=== PATIENT | male | born 1940 | race Caucasian/White ===

== ENCOUNTER 2018-06-16 11:46 | Inpatient (IN) | payer OTHER ==
[~2018-06-16] VITALS: Ht 167.6 cm; Wt 73.9 kg
--- NOTE | ~2018-06-16 | O ---
[facility] [place] [address] [place] [address] OPERATIVE REPORT Name: ANGELES PAZ Room #: 215-P [facility] IN M.R.#: [id number] Admission: 06/16/18 Attend Phys: Daniel Tubbs MD Discharge: 06/27/18 Date of : 40 Report #: [id number] THIS REPORT FOR: //name// CC: SABRA physician/PCP Daniel Tubbs WHOLE CARE TEAM DATE OF SERVICE: 06/25/2018 SURGEON: Leighton Sutherland MD REASON FOR CONSULTATION: 1. Rule out upper airway obstruction with stridor. 2. COPD exacerbation. POSTOPERATIVE DIAGNOSES: 1. Rule out upper airway obstruction with stridor. 2. COPD exacerbation. OPERATION PERFORMED: Flexible nasopharyngoscopy. DESCRIPTION OF PROCEDURE: In the patient's hospital room, topical anesthesia was achieved with 1% Christian-Synephrine and 4% topical lidocaine. After an appropriate period, examination was made with a flexible laryngoscope. Complete examination was made of the nose, nasopharynx, oropharynx, hypopharynx and larynx. The patient was noted to have a nasal septal deviation to the right, nonobstructing without polyps. There was no significant discharge to the nose. Nasopharynx was clear. Base of tongue, vallecula, epiglottis, hypopharynx and larynx were normal. There was no pooling of secretions at the cricopharyngeal. Vocal cords were mobile. No mass lesion was noted. The scope was then removed. The patient tolerated the procedure well. There were no complications. <ELECTRONICALLY SIGNED> By: Leighton Sutherland MD 06/29/18 1619 1223 1244 Leighton Sutherland MD /nt
--- NOTE | ~2018-06-16 | HC ---
[facility] [place] [address] [place] [address] CONSULTATION Name: ANGELES PAZ Room #: 215-P [facility] IN M.R.#: [id number] Admission: 06/16/18 Attend Phys: Daniel Tubbs MD Discharge: 06/27/18 Date of : 40 Report #: [id number] THIS REPORT FOR: //name// CC: SABRA physician/PCP Daniel Tubbs DATE OF SERVICE: 06/25/2018 SURGEON: Leighton Sutherland MD. REASON FOR CONSULTATION: Otolaryngic evaluation of upper airway. HISTORY OF PRESENT ILLNESS: The patient is a 77-year-old male admitted through the Emergency Department on 06/16/2018 with an exacerbation of his underlying COPD. The patient is an active smoker of tobacco. He has not been able to smoke since being in the hospital. He has had progressive wheezing and I was asked to evaluate if there was any upper airway stridor component. He complains of shortness of breath. Review of his chart has revealed nighttime desaturation concerning for obstructive apnea. The patient is on aggressive therapy including IV Solu-Medrol as well as nebulized treatments, Mucinex, procalcitonin for concern of possible sepsis. He has been evaluated by Pulmonology. Complicating this is diastolic heart failure in a background of hypertension and coronary artery disease. He does have a history of previous coronary bypass grafting. PAST MEDICAL HISTORY: Significant for COPD with multiple hospitalizations for exacerbation in this patient who continues to smoke tobacco, anxiety, coronary artery disease status post CABG graft, diastolic heart failure, hypertension, degenerative joint disease, left shoulder pain. CURRENT MEDICATIONS: Reviewed in his MAR. ALLERGIES: None. REVIEW OF SYSTEMS: All concentrated on the patient's shortness of breath and discomfort. Remaining 10-point review of systems is unremarkable. FAMILY HISTORY: Not pertinent. SOCIAL HISTORY: The patient continues to smoke tobacco. He states less than a pack a day. States that he quit smoking on presentation to the hospital, but smoked up until that. He does use alcohol. He does use marijuana. PHYSICAL EXAMINATION: GENERAL: A well-developed 77-year-old male, looking older than his stated age. He is uncomfortable with shortness of breath and wheezing. He is able to [facility] [address] [address] CONSULTATION Name: ANGELES PAZ Room #: 215-P [facility] IN M.R.#: [id number] Admission: 06/16/18 Attend Phys: Daniel Tubbs MD Discharge: 06/27/18 Date of : 40 Report #: [id number] converse in short sentences stopping to take a breath. VITAL SIGNS: Show a temperature of 97.7, blood pressure 149/58, heart rate of 87, respiration of 20, 95% oxygen saturation. HEENT: He is normocephalic. Pupils equal, round, reactive to light. Otologic exam, mild cerumen nonobstructing, no middle ear effusion. Nasal exam shows a deviated septum to the right, partially obstructing. Oral cavity is without mucosal lesion. Hypopharynx was examined with flexible endoscopy after topical Christian-Synephrine and lidocaine. This demonstrates a normal base of tongue, normal vallecula, normal epiglottis, normal larynx with mobile vocal cords. There is no mass lesion. There is no pooling of secretions at the cricopharyngeus. NECK: Trachea is midline. No adenopathy. NEUROLOGIC: Cranial nerves 2-12 were intact. Motor and sensory and cerebellar exam is difficult to examine as the patient cannot get out of bed. Chest x-ray from 06/25/2018 reviewed showing left basilar atelectasis, which is a new finding. Blood cultures have thus far been no growth. CBC shows a white count of 14,500 on Solu-Medrol, hemoglobin of 9.6. Electrolytes show an elevated BUN of 40, chloride of 113, CO2 of 25, calcium of 7.1. I do not see that an albumin was done. Magnesium also mildly low at 1.7. Electrocardiogram was reviewed. LVEF is 55%-60%, mild aortic regurgitation, trace mitral regurgitation, trace to mild tricuspid regurgitation. IMPRESSION: 1. Chronic obstructive pulmonary disease exacerbation. I see no evidence of any upper airway obstructive findings. There is no paradoxical closure of the vocal cords. There is no laryngeal or supraglottic mass that would account for upper airway stridor. 2. Oxygen desaturation concerning for obstructive apnea. After the patient's chronic obstructive pulmonary disease comes under better control, this can be evaluated with polysomnography. 3. Tobacco abuse continuing. 4. Diastolic heart failure with a history of chronic obstructive pulmonary disease, status post coronary artery bypass graft and hypertension. 5. Nasal septal deviation of the right, partially obstructing, chronic in nature. PLAN: Above discussed with the patient. I will not plan to follow along with you, but I am available for any change in status concerning his upper airway. <ELECTRONICALLY SIGNED> By: Leighton Sutherland MD 06/29/18 1619 1218 27 Leighton Sutherland MD /nt
--- NOTE | ~2018-06-16 | HC ---
[facility] [place] [address] [place] [address] CONSULTATION Name: ANGELES PAZ Room #: 215-P ADM IN M.R.#: [id number] Admission: 06/16/18 Attend Phys: Daniel Tubbs MD Discharge: Date of : 40 Report #: [id number] THIS REPORT FOR: //name// CC: SABRA physician/PCP Daniel Tubbs DATE OF SERVICE: 06/21/2018 REFERRAL PHYSICIAN: Dr. Finley. REASON FOR REFERRAL: COPD. HISTORY OF PRESENT ILLNESS: The patient is a 77-year-old white male who was admitted on 06/16/2018 with left arm pain. When he presented to the Emergency Room, he also complained of dyspnea. The patient has a history of COPD. Over the last couple of days, the patient had progressive dyspnea, bronchospasm. For that reason, a pulmonary consultation was requested. The patient is currently dyspneic. Denies any chest pain. Denies any productive cough. He has left shoulder pain that has been controlled on narcotics. PAST MEDICAL HISTORY: Notable for COPD, history of coronary artery disease, undergone bypass surgery in 2000, rotator cuff surgery in the past, tobacco abuse. PAST SURGICAL HISTORY: As mentioned above. ALLERGIES: None to medications. HOME MEDICATIONS: Pletal, Glucophage, clonazepam, aspirin, Remeron, Coreg, Neurontin, Zestril, Lipitor, prednisone 5 mg once a day, baclofen. FAMILY HISTORY: Noncontributory. SOCIAL HISTORY: He continues to smoke about a pack a day. He denies any alcohol use. REVIEW OF SYSTEMS: As mentioned above, otherwise 10-point system review negative. PHYSICAL EXAMINATION: GENERAL: He is awake, alert, in mild respiratory distress. VITAL SIGNS: Temperature is 97.5 degrees Fahrenheit, pulse is 90, respiratory rate is 18, blood pressure is 145/68 mmHg and saturation is 93%. HEENT: Normocephalic, atraumatic. [facility] [address] [place] [address] CONSULTATION Name: ANGELES PAZ Room #: 215-P [facility] IN [facility].#: [id number] Admission: 06/16/18 Attend Phys: Daniel Tubbs MD Discharge: Date of : 40 Report #: [id number] NECK: Supple, without lymphadenopathy or thyromegaly. CHEST: Breath sounds are fair, moderate bilateral wheezes. No crackles. CARDIOVASCULAR: Normal S1, S2. No murmurs or gallop. There is no JVD. There is no carotid bruit. Pulses are 2+/4+ bilaterally. ABDOMEN: Soft, nontender, no organomegaly or masses felt. GENITOURINARY: Deferred. RECTAL: Deferred. EXTREMITIES: There is no edema, cyanosis or clubbing. LABORATORY DATA: CT chest angiogram shows no evidence of pulmonary embolus, patchy bilateral infiltrates are seen. Electrolytes are normal except for creatinine of 1.3. Liver enzymes are grossly unremarkable. WBC 14,800, hemoglobin 10.0, platelets are normal. Albumin 2.1. IMPRESSION: 1. Chronic obstructive pulmonary disease exacerbation, severity unknown, continuing to smoke. Agree with corticosteroids and bronchodilators. 2. Tobacco abuse. Smoke cessation is strongly recommended. 3. Left shoulder pain. 4. Coronary artery disease, undergoing coronary artery bypass surgery. 5. Patchy infiltrates by CT chest angiogram, possible pneumonia. Recommend broad-spectrum antibiotics. 6. Hypertension. 7. Diabetes mellitus type 2. RECOMMENDATION: As mentioned above, agree with corticosteroids, bronchodilators. DVT and GI prophylaxis recommended. Thank you for this consultation. By: [id number] 2325 Too Nguyen MD /nt
--- NOTE | ~2018-06-16 | EKG ---
[place] [address] [employer] [place] [address] ELECTROCARDIOGRAM REPORT Name: ANGELES PAZ Room #: 215-P ADM IN M.R.#: [id number] Admission: 06/16/18 Attend Phys: Daniel Tubbs MD Discharge: Date of : 40 Report #: [id number] THIS REPORT FOR: //name// [facility] Test Date: 2018-06-21 Test Time: 19:23:26 Pat Name: ANGELES PAZ Department: Room: 215 Gender: M Fern Gatherer: Jo SALAZAR : 1940 Requested By: Heather Aceves Order Number: [id number] MD: Mert Barrientos Measurements Intervals [place] Rate: 98 P: 71 OR: 138 QRS: 49 QRSD: 61 T: 45 QT: 415 QTc: 530 Interpretive Statements Sinus rhythm Probable left atrial enlargement Nonspecific ST and T wave abnormality Prolonged QT interval Compared to ECG 06/16/2018 12:06:19 Ventricular premature complex(es) no longer present Electronically Signed On 06-22-2018 8:31:56 CDT by Mert Barrientos [email or web address] <ELECTRONICALLY SIGNED> By: Mert Barrientos MD, [facility] 06/22/18 0831 22 22 Mert Barrientos MD, [facility] /EPI
--- NOTE | ~2018-06-16 | 2DMMODE ---
[facility] [place] [address] [place] [address] 2 D/M-MODE ECHOCARDIOGRAM Name: ANGELES PAZ Room #: 215-P [facility] IN [facility]#: [id number] Admission: 06/16/18 Attend Phys: Daniel Tubbs MD Discharge: Date of : 40 Date of Service: 06/24/18 0940 Report #: [id number] THIS REPORT FOR: //name// APPROVED REPORT Study performed: 06/23/2018 13:25:39 EXAM: Comprehensive 2D, Doppler, and color-flow Echocardiogram Patient Location: In-Patient Room #: 215 Status: routine BSA: 1.83 BP: 147/58 mmHg Other Information Study Quality: Adequate Indications Dyspnea 2D Dimensions IVSd: 9.53 (7-11mm) LVOT Diam: 20.53 (18-24mm) LVDd: 44.73 mm PWd: 11.79 (7-11mm) LVDs: 28.49 (25-40mm) Left Atrium: 35.30 (27-40mm) Aortic Root: 33.95 mm IVC: 18.00 mm Volumes Left Atrial Volume (Systole) Single Plane 4CH: 53.48 mL Single Plane 2CH: 54.45 mL Aortic Valve AoV Peak Rg.: 1.98 m/s AO Peak Gr.: 15.64 mmHg AO Mean Gr.: 9.38 mmHg AO V2 Mean: 1.45 m/s AO V2 VTI: 35.13 cm Mitral Valve E/A Ratio: 0.8 MV Decel. Time: 240.97 ms MV E Max Rg.: 0.85 m/s MV A Rg.: 1.11 m/s [facility] [address] [place] [address] 2 D/M-MODE ECHOCARDIOGRAM Name: ANGELES PAZ Room #: 215-P [facility] [place] [facility]#: [id number] Admission: 06/16/18 Attend Phys: Daniel Tubbs MD Discharge: Date of : 40 Date of Service: 06/24/18 0940 Report #: [id number] MV PHT: 69.88 ms Pulmonary Valve PV Peak Rg.: 1.41 m/s PV Peak Gr.: 7.96 mmHg Pulmonary Vein P Vein S: 1.12 m/s P Vein A: 0.33 m/s P Vein D: 0.50 m/s P Vein A Dur.: 138.4 msec P Vein S/D Ratio: 2.24 Tricuspid Valve TR Peak Rg.: 3.23 m/s RAP Estimate: 3.00 mmHg TR Peak Gr.: 41.72 mmHg RVSP: 45.00 mmHg Left Ventricle The left ventricle is normal size. There is normal LV segmental wall motion. There is normal left ventricular wall thickness. The left ventricular systolic function is normal. The left ventricular ejection fraction is within the normal range. LVEF is 55-60%. Grade I - abnormal relaxation pattern. Right Ventricle The right ventricle is normal size. The right ventricular systolic function is normal. Atria The left atrium size is normal. The right atrium size is normal. Aortic Valve The aortic valve is normal in structure. Trace to mild aortic regurgitation. Calculated aortic valve area is 3.0 cm2 with maximum pressure gradient of 16 mmHg and mean pressure gradient of 9 mmHg. Mitral Valve The mitral valve is normal in structure. Trace mitral regurgitation. Tricuspid Valve The tricuspid valve is normal in structure. There is trace to mild tricuspid regurgitation. The right atrial pressure is estimated at 5 mmHg. Right ventricular systolic pressure is estimated at 40-50 mmHg. There is mild-moderate pulmonary hypertension. Pulmonic Valve [address] [address] 2 D/M-MODE ECHOCARDIOGRAM Name: ANGELES PAZ Room #: 215-P ADM IN M.R.#: [id number] Admission: 06/16/18 Attend Phys: Daniel Tubbs MD Discharge: Date of : 40 Date of Service: 06/24/18 0940 Report #: [id number] The pulmonary valve is normal in structure. There is no pulmonic valvular regurgitation. Great Vessels The aortic root is normal in size. IVC is normal in size and collapses >50% with inspiration. Pericardium There is no pericardial effusion. <Conclusion> The left ventricle is normal size. LVEF is 55-60%. The aortic valve is normal in structure. Trace to mild aortic regurgitation. Calculated aortic valve area is 3.0 cm2 with maximum pressure gradient of 16 mmHg and mean pressure gradient of 9 mmHg. The mitral valve is normal in structure. Trace mitral regurgitation. The tricuspid valve is normal in structure. There is trace to mild tricuspid regurgitation. The right atrial pressure is estimated at 5 mmHg. Right ventricular systolic pressure is estimated at 40-50 mmHg. There is mild-moderate pulmonary hypertension. The pulmonary valve is normal in structure. There is no pericardial effusion. <ELECTRONICALLY SIGNED> By: Cali Borrego MD 06/24/18939 9 9 Cali Borrego MD /INF
--- NOTE | ~2018-06-16 | EKG ---
[place] [address] [facility] [place] [address] ELECTROCARDIOGRAM REPORT Name: ANGELES PAZ Room #: 418-P ADM IN M.R.#: [id number] Admission: 06/16/18 Attend Phys: Daniel Tubbs MD Discharge: Date of : 40 Report #: [id number] THIS REPORT FOR: //name// [facility] ED Test Date: 2018-06-16 Test Time: 12:06:19 Pat Name: ANGELES PAZ Department: Room: [facility] Gender: M Molten Iron Pourer: ALYSE : 1940 Requested By: Jv Wolfe Order Number: [id number] MD: Lb Amanda Measurements Intervals [place] Rate: 62 P: 68 [place]: 152 QRS: 37 QRSD: 83 T: 55 QT: 450 QTc: 457 Interpretive Statements Sinus rhythm Multiple ventricular premature complexes Probable left atrial enlargement Baseline wander in lead(s) V2 No previous ECG available for comparison Electronically Signed On 06-17-2018 16:49:42 CDT by Lb Amanda [email or web address] <ELECTRONICALLY SIGNED> By: Lb Amanda MD 06/17/18 1649 05 05 Lb Amanda MD /NITZA
[2018-06-16 11:47] VITALS: BP 115/53
[2018-06-16 12:11] LABS: ABSOLUTE NEUTROPHILS 7.1 thou/uL (1.4-8.2); BASOPHILS 1.5 % (0.0-2.0); EOSINOPHILS 2.2 % (0.0-3.0); HEMOGLOBIN 12.5 gm/dL (14.0-18.0); LYMPHOCYTES 14.7 % (24.0-44.0); MCH 30.7 pg (26.0-34.0); MCHC 34.6 g/dL (28.0-37.0); MCV 88.7 fL (80.0-100.0); PLATELET COUNT 245 thou/uL (150-400); POLYS 75.6 % (36.0-66.0); RBC 4.05 mil/uL (4.50-6.00); RDW 13.4 % (10.5-14.5); WBC 9.4 thou/uL (4.0-11.0)
[2018-06-16 12:19] LABS: ANION GAP 11 mmol/L (7-16); BUN 14 mg/dL (7-18); CALCIUM 8.5 mg/dL (8.5-10.1); CHLORIDE 106 mmol/L (98-107); CO2 25 mmol/L (21-32); CREATININE 1.1 mg/dL (0.7-1.3); GLUCOSE 110 mg/dL (74-106); SODIUM 142 mmol/L (136-145)
[2018-06-16 12:25] LABS: APTT 27.2 Seconds (24.5-32.8); PROTIME 10.7 Seconds (9.3-11.4)
[2018-06-16 12:27] LABS: ALBUMIN 2.8 g/dL (3.4-5.0); MAGNESIUM 1.9 mg/dL (1.8-2.4); SGOT 14 U/L (15-37); SGPT 13 U/L (30-65); TOTAL BILIRUBIN 0.4 mg/dL (<0.1-1.0); TOTAL PROTEIN 6.8 g/dL (6.4-8.2); TROPONIN-I <0.06 ng/mL (<0.06)
[2018-06-16] MEDS ORDERED: CILOSTAZOL 100100 M1 PO (12:36)
[2018-06-16] MEDS ORDERED: CLONAZEPAM 0.50.5 M1 PO (12:37)
[2018-06-16] MEDS ORDERED: METFORMIN HCL500 MG PO (12:37)
[2018-06-16] MEDS ORDERED: ASPIR 8181 MG PO (12:37)
[2018-06-16] MEDS ORDERED: PHARBETOL500 M1 PO (12:38)
[2018-06-16] MEDS ORDERED: CARVEDILOL12.5 MG PO (12:38)
[2018-06-16] MEDS ORDERED: REMERON15 MG PO (12:38)
[2018-06-16] MEDS ORDERED: LISINOPRIL10 MG PO (12:39)
[2018-06-16] MEDS ORDERED: NEURONTIN 300300 M1 PO (12:39)
[2018-06-16] MEDS ORDERED: PREDNISONE 5 MG5 M1 PO (12:40)
[2018-06-16] MEDS ORDERED: ATORVASTATIN CA40 MG PO (12:40)
[2018-06-16] MEDS ORDERED: LIORESAL 10 MG10 MG PO (12:40)
[2018-06-16 14:06] VITALS: BP 104/38
[2018-06-16 15:13] VITALS: BP 106/47
[2018-06-16 15:28] VITALS: BP 115/50
[2018-06-16 19:22] VITALS: BP 124/51
[2018-06-17 00:58] LABS: URINE BILIRUBIN NEGATIVE (Negative); URINE BLOOD NEGATIVE (Negative); URINE CLARITY CLEAR; URINE COLOR YELLOW; URINE GLUCOSE-RANDOM* NEGATIVE (Negative); URINE KETONES NEGATIVE (Negative); URINE LEUKOCYTES-REFLEX NEGATIVE (Negative); URINE NITRITE-REFLEX NEGATIVE (Negative); URINE PROTEIN (DIPSTICK) NEGATIVE (Negative); URINE SPECIFIC GRAVITY >= 1.030 (1.005-1.035); URINE UROBILINOGEN 0.2 E.U./dl (0.2-1.0)
[2018-06-17 01:15] LABS: AMP/METHAMP Negative (Negative); BARBITURATES Negative (Negative); BENZODIAZEPINES Negative (Negative); COCAINE Negative (Negative); METHADONE Negative (Negative); OPIATES Negative (Negative); PCP Negative (Negative)
[2018-06-17 04:35] VITALS: BP 151/65
[2018-06-17 04:39] LABS: HEMATOCRIT 35.1 % (42.0-52.0); HEMOGLOBIN 11.8 gm/dL (14.0-18.0); MCHC 33.7 g/dL (28.0-37.0); RBC 3.94 mil/uL (4.50-6.00); RDW 13.3 % (10.5-14.5); WBC 6.5 thou/uL (4.0-11.0)
[2018-06-17 04:51] LABS: CREATININE 1.3 mg/dL (0.7-1.3); POTASSIUM 4.6 mmol/L (3.5-5.1)
[2018-06-17 07:26] VITALS: BP 146/65
[2018-06-17 19:46] VITALS: BP 126/41
[2018-06-18 04:52] VITALS: BP 137/57
[2018-06-18 05:56] LABS: HEMATOCRIT 30.8 % (42.0-52.0); HEMOGLOBIN 10.5 gm/dL (14.0-18.0); MCH 30.1 pg (26.0-34.0); MCHC 34.1 g/dL (28.0-37.0); MCV 88.1 fL (80.0-100.0); RBC 3.5 mil/uL (4.50-6.00); RDW 13.1 % (10.5-14.5); WBC 15.6 thou/uL (4.0-11.0)
[2018-06-18 06:08] LABS: CALCIUM 8.6 mg/dL (8.5-10.1); CREATININE 1.3 mg/dL (0.7-1.3); POTASSIUM 4.6 mmol/L (3.5-5.1)
[2018-06-18 07:00] VITALS: BP 132/44
[2018-06-18 15:45] VITALS: BP 134/54
[2018-06-18 20:30] VITALS: BP 139/48
[2018-06-19 04:18] VITALS: BP 119/47
[2018-06-19 06:15] LABS: HEMATOCRIT 30.7 % (42.0-52.0); HEMOGLOBIN 10.4 gm/dL (14.0-18.0); MCH 29.8 pg (26.0-34.0); MCHC 33.7 g/dL (28.0-37.0); MCV 88.2 fL (80.0-100.0); RBC 3.49 mil/uL (4.50-6.00); WBC 13.3 thou/uL (4.0-11.0)
[2018-06-19 06:34] LABS: CALCIUM 9.1 mg/dL (8.5-10.1); CREATININE 1.3 mg/dL (0.7-1.3); POTASSIUM 4.7 mmol/L (3.5-5.1)
[2018-06-19 07:39] VITALS: BP 127/48
[2018-06-19 11:20] VITALS: BP 106/41
[2018-06-19 19:41] VITALS: BP 126/45
[2018-06-20 07:47] LABS: HEMATOCRIT 32.2 % (42.0-52.0); MCH 30.3 pg (26.0-34.0); MCHC 34.2 g/dL (28.0-37.0); MCV 88.6 fL (80.0-100.0); RBC 3.64 mil/uL (4.50-6.00); RDW 13.4 % (10.5-14.5); WBC 14.5 thou/uL (4.0-11.0)
[2018-06-20 07:56] LABS: CALCIUM 8.8 mg/dL (8.5-10.1); CREATININE 1.3 mg/dL (0.7-1.3); POTASSIUM 4.3 mmol/L (3.5-5.1)
[2018-06-20 19:05] VITALS: BP 151/50
[2018-06-21 08:08] VITALS: BP 145/68
[2018-06-21 12:27] LABS: HEMATOCRIT 29.7 % (42.0-52.0); HEMOGLOBIN 10.1 gm/dL (14.0-18.0); MCH 30.1 pg (26.0-34.0); MCV 88.5 fL (80.0-100.0); RBC 3.36 mil/uL (4.50-6.00); RDW 13.6 % (10.5-14.5); WBC 14.8 thou/uL (4.0-11.0)
[2018-06-21 12:39] LABS: ALBUMIN 2.1 g/dL (3.4-5.0); CREATININE 1.2 mg/dL (0.7-1.3); POTASSIUM 4.4 mmol/L (3.5-5.1); TOTAL BILIRUBIN 0.2 mg/dL (<0.1-1.0); TOTAL PROTEIN 5.2 g/dL (6.4-8.2)
[2018-06-21 19:40] LABS: HEMATOCRIT 31.5 % (42.0-52.0); HEMOGLOBIN 10.9 gm/dL (14.0-18.0); MCH 30.6 pg (26.0-34.0); MCHC 34.5 g/dL (28.0-37.0); MCV 88.8 fL (80.0-100.0); RBC 3.55 mil/uL (4.50-6.00); RDW 13.7 % (10.5-14.5); WBC 16.1 thou/uL (4.0-11.0)
[2018-06-21 19:47] LABS: ANION GAP 8 mmol/L (7-16); BUN 43 mg/dL (7-18); CALCIUM 8.4 mg/dL (8.5-10.1); CHLORIDE 110 mmol/L (98-107); CO2 23 mmol/L (21-32); CREATININE 1.6 mg/dL (0.7-1.3); GLUCOSE 224 mg/dL (74-106); POTASSIUM 4.7 mmol/L (3.5-5.1); SODIUM 141 mmol/L (136-145)
[2018-06-21 19:51] LABS: BE(vivo) -2.7 mmol/L (-2 to +3); HCO3 19.8 mmol/L (22.0-26.0); PCO2 27.4 mmHg (35.0-45.0); PO2 190.6 mmHg (80.0-100.0); pH 7.477 (7.360-7.450); sO2 99.4 % (92.0-98.0)
[2018-06-21 19:57] LABS: TROPONIN-I <0.06 ng/mL (<0.06)
[2018-06-21 21:42] VITALS: BP 117/84
[2018-06-22 03:50] VITALS: BP 145/63
[2018-06-22 04:25] LABS: HEMATOCRIT 32.2 % (42.0-52.0); HEMOGLOBIN 10.8 gm/dL (14.0-18.0); MCH 29.8 pg (26.0-34.0); MCHC 33.7 g/dL (28.0-37.0); MCV 88.5 fL (80.0-100.0); RBC 3.63 mil/uL (4.50-6.00); RDW 14.1 % (10.5-14.5); WBC 15.5 thou/uL (4.0-11.0)
[2018-06-22 04:46] LABS: CALCIUM 7.9 mg/dL (8.5-10.1); CREATININE 1.4 mg/dL (0.7-1.3); MAGNESIUM 1.8 mg/dL (1.8-2.4)
[2018-06-22 07:54] VITALS: BP 143/55
[2018-06-22 15:54] LABS: BE(vivo) -2.4 mmol/L (-2 to +3); HCO3 20.7 mmol/L (22.0-26.0); PCO2 30.3 mmHg (35.0-45.0); PO2 66.1 mmHg (80.0-100.0); pH 7.453 (7.360-7.450); sO2 94.2 % (92.0-98.0)
[2018-06-22 16:24] VITALS: BP 105/45
[2018-06-22 20:10] VITALS: BP 130/577
[2018-06-23 00:12] VITALS: BP 112/53
[2018-06-23 04:43] VITALS: BP 132/58
[2018-06-23 07:21] LABS: HEMATOCRIT 29.8 % (42.0-52.0); MCH 29.8 pg (26.0-34.0); MCHC 33.7 g/dL (28.0-37.0); MCV 88.3 fL (80.0-100.0); RBC 3.37 mil/uL (4.50-6.00); RDW 13.8 % (10.5-14.5); WBC 15.4 thou/uL (4.0-11.0)
[2018-06-23 07:30] LABS: CALCIUM 7.6 mg/dL (8.5-10.1); CREATININE 1.4 mg/dL (0.7-1.3); MAGNESIUM 1.8 mg/dL (1.8-2.4); POTASSIUM 3.8 mmol/L (3.5-5.1)
[2018-06-23 07:51] VITALS: BP 147/58
[2018-06-23 10:52] LABS: BE(vivo) -1.7 mmol/L (-2 to +3); HCO3 22.2 mmol/L (22.0-26.0); PO2 146.5 mmHg (80.0-100.0); pH 7.421 (7.360-7.450); sO2 98.9 % (92.0-98.0)
[2018-06-23 11:07] VITALS: BP 126/50
[2018-06-23 11:53] LABS: FOLIC ACID 7.1 ng/mL (8.6-58.9)
[2018-06-23 19:59] VITALS: BP 130/43
[2018-06-24 04:18] VITALS: BP 135/53
[2018-06-24 06:01] LABS: WBC 16.6 thou/uL (4.0-11.0)
[2018-06-24 06:02] LABS: HEMATOCRIT 29.8 % (42.0-52.0); HEMOGLOBIN 10.1 gm/dL (14.0-18.0); MCH 30.3 pg (26.0-34.0); MCHC 34.1 g/dL (28.0-37.0); MCV 89.1 fL (80.0-100.0); PLATELET COUNT 218 thou/uL (150-400); RBC 3.34 mil/uL (4.50-6.00); RDW 13.8 % (10.5-14.5)
[2018-06-24 06:13] LABS: CALCIUM 7.5 mg/dL (8.5-10.1); CREATININE 1.2 mg/dL (0.7-1.3); POTASSIUM 4.2 mmol/L (3.5-5.1); TOTAL BILIRUBIN 0.3 mg/dL (<0.1-1.0); TOTAL PROTEIN 4.9 g/dL (6.4-8.2)
[2018-06-24 09:37] LABS: ABSOLUTE NEUTROPHILS 15.9 thou/uL (1.4-8.2); METAMYELOCYTES 1 %
[2018-06-24 09:38] LABS: ANISOCYTOSIS SLIGHT
[2018-06-24 13:48] VITALS: BP 137/58
[2018-06-24 17:20] VITALS: BP 159/65
[2018-06-24 19:52] VITALS: BP 137/49
[2018-06-25 03:47] LABS: CALCIUM 7.1 mg/dL (8.5-10.1); CREATININE 1.2 mg/dL (0.7-1.3); MAGNESIUM 1.7 mg/dL (1.8-2.4); POTASSIUM 4.3 mmol/L (3.5-5.1)
[2018-06-25 03:58] LABS: HEMATOCRIT 28.1 % (42.0-52.0); HEMOGLOBIN 9.6 gm/dL (14.0-18.0); MCH 30.5 pg (26.0-34.0); MCHC 34.2 g/dL (28.0-37.0); RBC 3.16 mil/uL (4.50-6.00); WBC 14.5 thou/uL (4.0-11.0)
[2018-06-25 04:55] VITALS: BP 143/51
[2018-06-25 08:05] VITALS: BP 149/58
[2018-06-25 16:49] VITALS: BP 161/54
[2018-06-25 19:58] VITALS: BP 126/40
[2018-06-26 04:16] VITALS: BP 155/49
[2018-06-26 07:44] VITALS: BP 156/55
[2018-06-26 15:05] VITALS: BP 126/41
[2018-06-26 20:13] VITALS: BP 118/56
[2018-06-27 04:00] VITALS: BP 120/59
[2018-06-27 09:11] VITALS: BP 150/53
[2018-06-27] MEDS ORDERED: MUCINEX600 MG PO (15:10)
[2018-06-27] MEDS ORDERED: PROTONIX40 M1 PO (15:11)
[2018-06-27] MEDS ORDERED: DOXYCYCLINE 10100 MG PO (15:11)
[2018-06-27] MEDS ORDERED: PREDNISONE 10 M10 MG PO (15:12)
[2018-06-27 15:43] VITALS: BP 150/53
[2018-06-27 17:07] VITALS: BP 140/57
[2018-06-27 17:28] VITALS: BP 150/53
[2018-06-27 18:11] VITALS: BP 150/53
== END 2018-06-27 19:20 | disposition home health service (06) | DRG 189 ==
LOC: ER 11:46 → EROBS 13:58 → 4E 13:58 → 2N 13:58 → 4E 15:17 → SICU 06-19 10:28 → 2N 06-21 20:26
PROVIDERS: Emergency Medicine; Hospitalist; Internal Medicine; Nurse Practitioner Acute Care; Pediatrics
PROC: 5A09357 Assistance with Respiratory Ventilation, Less than 24 Consecutive Hours, Continuous Positive Airway Pressure (ICD-10-PCS; principal; 2018-06-21)
PROC: 5A09357 Assistance with Respiratory Ventilation, Less than 24 Consecutive Hours, Continuous Positive Airway Pressure (ICD-10-PCS; 2018-06-22)
PROC: 5A09357 Assistance with Respiratory Ventilation, Less than 24 Consecutive Hours, Continuous Positive Airway Pressure (ICD-10-PCS; 2018-06-23)
PROC: 5A09357 Assistance with Respiratory Ventilation, Less than 24 Consecutive Hours, Continuous Positive Airway Pressure (ICD-10-PCS; 2018-06-24)
PROC: 5A09357 Assistance with Respiratory Ventilation, Less than 24 Consecutive Hours, Continuous Positive Airway Pressure (ICD-10-PCS; 2018-06-25)
PROC: 0CJY8ZZ Inspection of Mouth and Throat, Via Natural or Artificial Opening Endoscopic (ICD-10-PCS; 2018-06-25)
PROC: 5A09357 Assistance with Respiratory Ventilation, Less than 24 Consecutive Hours, Continuous Positive Airway Pressure (ICD-10-PCS; 2018-06-26)
DX: J96.01 Acute respiratory failure with hypoxia (principal); J44.1 Chronic obstructive pulmonary disease with (acute) exacerbation; I50.30 Unspecified diastolic (congestive) heart failure; E46 Unspecified protein-calorie malnutrition; E87.2 Acidosis; Z23 Encounter for immunization; F17.210 Nicotine dependence, cigarettes, uncomplicated; F41.9 Anxiety disorder, unspecified; M19.90 Unspecified osteoarthritis, unspecified site; I25.10 Atherosclerotic heart disease of native coronary artery without angina pectoris; F98.5 Adult onset fluency disorder; M25.512 Pain in left shoulder; E11.9 Type 2 diabetes mellitus without complications; I11.0 Hypertensive heart disease with heart failure; J34.2 Deviated nasal septum; E78.5 Hyperlipidemia, unspecified; G89.29 Other chronic pain; Z60.2 Problems related to living alone; D72.829 Elevated white blood cell count, unspecified; T38.0X5A Adverse effect of glucocorticoids and synthetic analogues, initial encounter; R79.89 Other specified abnormal findings of blood chemistry; E53.8 Deficiency of other specified B group vitamins; G47.00 Insomnia, unspecified; E83.42 Hypomagnesemia; I27.20 Pulmonary hypertension, unspecified; I08.0 Rheumatic disorders of both mitral and aortic valves; Z53.29 Procedure and treatment not carried out because of patient's decision for other reasons; Z79.899 Other long term (current) drug therapy; Z79.82 Long term (current) use of aspirin; Z95.1 Presence of aortocoronary bypass graft; Z71.6 Tobacco abuse counseling; Z68.26 Body mass index [BMI] 26.0-26.9, adult; Y92.89 Other specified places as the place of occurrence of the external cause
CPT/HCPCS: 10081; 10183; 10797; 15002

== ENCOUNTER 2018-08-07 18:15 | Inpatient (IN) | payer OTHER ==
[~2018-08-07] VITALS: Ht 167.6 cm; Wt 65.8 kg
--- NOTE | ~2018-08-07 | EKG ---
[address] [address] ELECTROCARDIOGRAM REPORT Name: ANGELES PAZ Room #: 427-P ADM IN M.R.#: [id number] Admission: 08/07/18 Attend Phys: Joe Lutz Discharge: Date of : 40 Report #: [id number] THIS REPORT FOR: //name// [facility] ED Test Date: 2018-08-07 Test Time: 19:13:59 Pat Name: ANGELES PAZ Department: Room: [facility] Gender: M Wall Crane Operator: TERRY : 1940 Requested By: Cristiane English Order Number: [id number] MD: Mert Barrientos Measurements Intervals [place] Rate: 83 P: 59 DC: 156 QRS: 31 QRSD: 86 T: 38 QT: 376 QTc: 442 Interpretive Statements Sinus rhythm Minimal nonspecific ST segment abnormality Compared to ECG 06/21/2018 19:23:26 Prolonged QT interval no longer present Electronically Signed On 08-08-2018 9:03:03 PEDIATRIC INTENSIVE PHYSICIAN by Mert Barrientos [email or web address] <ELECTRONICALLY SIGNED> By: Mert Barrientos MD, [facility] 08/08/18 09 12 12 Mert Barrientos MD, [facility] /EPI
--- NOTE | ~2018-08-07 | HC ---
[facility] [place] [address] [place] [address] CONSULTATION Name: ANGELES PAZ Room #: 226-P [facility] IN M.R.#: [id number] Admission: 08/07/18 Attend Phys: Joe Lutz Discharge: Date of : 40 Report #: [id number] THIS REPORT FOR: //name// CC: [facility] physician/PCP Joe Horn DATE OF SERVICE: 08/13/2018 HISTORY OF PRESENT ILLNESS: The patient is a 77-year-old white male who was admitted on 08/07/2018 with exacerbation of COPD and influenza B. Since admission, the patient had a slow progress. He remains dyspneic with bronchospasm. For that reason, a pulmonary consultation was requested. The patient is known to this physician. He was last hospitalized in 06/2018 for exacerbation of COPD. Despite diagnosed with COPD, the patient continues to smoke actively. Currently, he complains of dyspnea, though it has improved. It is difficult for him to even move around the room. Otherwise, denies any chest pain, productive cough or hemoptysis. PAST MEDICAL HISTORY: Notable for COPD, severity unknown; coronary artery disease, undergoing coronary artery bypass surgery in 2000; diabetes mellitus type 2; hypertension; anxiety disorder; tobacco abuse; osteoarthritis; chronic shoulder pain. PAST SURGICAL HISTORY: As mentioned above including rotator cuff surgery. ALLERGIES: None to medications. HOME MEDICATIONS: Reviewed. CURRENT MEDICATIONS: Reviewed in the MAR. FAMILY HISTORY: Noncontributory. SOCIAL HISTORY: Smokes less than a pack a day and has smoked for most of his life. Denies any alcohol use. REVIEW OF SYSTEMS: As mentioned above, otherwise 10-point system review negative. PHYSICAL EXAMINATION: GENERAL: He is awake, alert, appears mildly dyspneic. He just had a shower. [facility] [address] [place] [address] CONSULTATION Name: ANGELES PAZ Room #: 226-P [facility] IN M.R.#: [id number] Admission: 08/07/18 Attend Phys: Joe Lutz Discharge: Date of : 40 Report #: [id number] VITAL SIGNS: Temperature is 97.4 degrees Fahrenheit, pulse is 90, respiratory rate is 18, blood pressure 136/50 mmHg, saturation 95%. HEENT: Normocephalic, atraumatic. NECK: Supple, without lymphadenopathy or thyromegaly. CHEST: Breath sounds are decreased with mild expiratory wheezes. CARDIOVASCULAR: Normal S1, S2. No murmurs or gallop. There is no JVD. There is no carotid bruit. Pulses are 2+/4+ bilaterally. ABDOMEN: Soft, nontender, no organomegaly or masses felt. GENITOURINARY: Deferred. RECTAL: Deferred. EXTREMITIES: There is no edema, cyanosis or clubbing. LABORATORY DATA: Portable chest x-ray was reviewed. It is clear. Electrolytes are normal except for creatinine 1.3. It was 1.1, previously. WBC 14,900, hemoglobin 9.9, platelets are normal. Albumin 3.1. IMPRESSION: 1. Chronic obstructive pulmonary disease exacerbation. 2. Influenza B. 3. Coronary artery disease. 4. Diabetes mellitus. 5. Hypertension. RECOMMENDATION AND DISCUSSION: The patient likely has severe pulmonary impairment, which would explain why he is slow to respond to therapy. Although he has improved somewhat. Suspect he needs more time. We will continue bronchodilators, corticosteroids. He may benefit from a assisted facility for ongoing medical care. He has not seen a station captain in the past, but recommend outpatient pulmonary followup for based on pulmonary functions and close outpatient treatment. DVT and GI prophylaxis recommended. Thank you for this consultation. <ELECTRONICALLY SIGNED> By: Too Nguyen MD 08/15/18 1915 0910 1020 Too Nguyen MD /nt
[~2018-08-07 18:15] MED LIST: ASPIR 8181 MG PO; ATORVASTATIN CA40 MG PO; CARVEDILOL12.5 MG PO; CILOSTAZOL 100100 M1 PO; CLONAZEPAM 0.50.5 M1 PO; DOXYCYCLINE 10100 MG PO; LIORESAL 10 MG10 MG PO; LISINOPRIL10 MG PO; METFORMIN HCL500 MG PO; MUCINEX600 MG PO; NEURONTIN 300300 M1 PO; PHARBETOL500 M1 PO; PREDNISONE 10 M10 MG PO; PREDNISONE 5 MG5 M1 PO; PROTONIX40 M1 PO; REMERON15 MG PO
[2018-08-07 18:16] VITALS: BP 145/46
[2018-08-07] MEDS ORDERED: ALBUTEROL2.5 MG/31 INH (18:28)
[2018-08-07 19:01] LABS: BE(vivo) -2.5 mmol/L (-2 to +3); HCO3 22.3 mmol/L (22.0-26.0); PCO2 VENOUS 38.7 mmHg (41.0-51.0); PO2 VENOUS 44.1 mmHg (35.0-45.0)
[2018-08-07 19:06] LABS: ABSOLUTE NEUTROPHILS 8.2 thou/uL (1.4-8.2); EOSINOPHILS 0.9 % (0.0-3.0); HEMATOCRIT 34.3 % (42.0-52.0); HEMOGLOBIN 11.7 gm/dL (14.0-18.0); LYMPHOCYTES 9.4 % (24.0-44.0); MCH 30.6 pg (26.0-34.0); MCHC 34.2 g/dL (28.0-37.0); MCV 89.6 fL (80.0-100.0); MONOCYTES 5.5 % (1.0-8.0); PLATELET COUNT 167 thou/uL (150-400); POLYS 83.2 % (36.0-66.0); RBC 3.83 mil/uL (4.50-6.00); RDW 16.2 % (10.5-14.5); WBC 9.9 thou/uL (4.0-11.0)
[2018-08-07 19:14] LABS: ANION GAP 8 mmol/L (7-16); BUN 10 mg/dL (7-18); CALCIUM 9.1 mg/dL (8.5-10.1); CHLORIDE 105 mmol/L (98-107); CO2 28 mmol/L (21-32); CREATININE 0.9 mg/dL (0.7-1.3); GLUCOSE 115 mg/dL (74-106); POTASSIUM 3.9 mmol/L (3.5-5.1); SODIUM 141 mmol/L (136-145)
[2018-08-07 19:23] LABS: ALBUMIN 3.1 g/dL (3.4-5.0); SGOT 16 U/L (15-37); SGPT 18 U/L (30-65); TOTAL BILIRUBIN 0.5 mg/dL (<0.1-1.0); TOTAL PROTEIN 6.8 g/dL (6.4-8.2); TROPONIN-I <0.06 ng/mL (<0.06)
[2018-08-07 20:29] VITALS: BP 147/60
[2018-08-07 20:35] VITALS: BP 147/60
[2018-08-07 23:40] VITALS: BP 149/52
[2018-08-08 06:41] LABS: ANION GAP 8 mmol/L (7-16); BUN 16 mg/dL (7-18); CALCIUM 8.6 mg/dL (8.5-10.1); CHLORIDE 105 mmol/L (98-107); CHOLESTEROL 126 mg/dL (<200); CO2 24 mmol/L (21-32); CREATININE 1.1 mg/dL (0.7-1.3); GLUCOSE 187 mg/dL (74-106); HDL CHOLESTEROL 49 mg/dL (>40); LDL CHOLESTEROL 73 mg/dL (<100); POTASSIUM 4.4 mmol/L (3.5-5.1); SODIUM 137 mmol/L (136-145); TC:HDL 2.6 Ratio (Not establshd); TRIGLYCERIDE 21 mg/dL (<150); VLDL 4 mg/dL (<40)
[2018-08-08 16:50] VITALS: BP 113/42
[2018-08-08 19:11] LABS: GLYCOHEMOGLOBIN (HGB A1C) 5.9 % (4.8-5.6)
[2018-08-08 19:41] VITALS: BP 116/36
[2018-08-09 04:34] VITALS: BP 117/43
[2018-08-09 09:11] VITALS: BP 125/42
[2018-08-09 16:06] VITALS: BP 124/38
[2018-08-09 20:05] VITALS: BP 128/45
[2018-08-10 04:28] VITALS: BP 105/26
[2018-08-10 07:51] VITALS: BP 138/53
[2018-08-10 16:31] VITALS: BP 150/54
[2018-08-10 20:30] VITALS: BP 131/45
[2018-08-11 04:30] VITALS: BP 122/32
[2018-08-11 07:30] VITALS: BP 151/45
[2018-08-11 19:45] VITALS: BP 132/42
[2018-08-11 22:05] VITALS: BP 132/42
[2018-08-12 04:00] VITALS: BP 131/45
[2018-08-12 07:21] VITALS: BP 142/46
[2018-08-12 16:09] VITALS: BP 133/40
[2018-08-12 20:19] VITALS: BP 136/41
[2018-08-13 04:24] VITALS: BP 124/44
[2018-08-13 06:24] LABS: HEMATOCRIT 28.9 % (42.0-52.0); HEMOGLOBIN 9.9 gm/dL (14.0-18.0); MCH 30.6 pg (26.0-34.0); MCHC 34.3 g/dL (28.0-37.0); MCV 89.2 fL (80.0-100.0); PLATELET COUNT 176 thou/uL (150-400); RBC 3.24 mil/uL (4.50-6.00); RDW 16.6 % (10.5-14.5); WBC 14.9 thou/uL (4.0-11.0)
[2018-08-13 06:29] LABS: CALCIUM 9.2 mg/dL (8.5-10.1); CREATININE 1.3 mg/dL (0.7-1.3); POTASSIUM 4.2 mmol/L (3.5-5.1)
[2018-08-13 07:14] VITALS: BP 141/48
[2018-08-13 09:06] LABS: ABSOLUTE NEUTROPHILS 13.6 thou/uL (1.4-8.2); PLATELET ESTIMATE NORMAL
[2018-08-13 15:47] VITALS: BP 136/37
[2018-08-13 20:10] VITALS: BP 128/47
[2018-08-14 03:16] VITALS: BP 154/48
[2018-08-14 08:00] VITALS: BP 138/47
[2018-08-14 09:18] VITALS: BP 133/63
[2018-08-14 10:39] LABS: HEMATOCRIT 30.7 % (42.0-52.0); HEMOGLOBIN 10.2 gm/dL (14.0-18.0); MCH 29.8 pg (26.0-34.0); MCHC 33.3 g/dL (28.0-37.0); MCV 89.6 fL (80.0-100.0); PLATELET COUNT 210 thou/uL (150-400); RBC 3.43 mil/uL (4.50-6.00); RDW 16.5 % (10.5-14.5); WBC 18.3 thou/uL (4.0-11.0)
[2018-08-14 10:48] LABS: CALCIUM 8.9 mg/dL (8.5-10.1); CREATININE 1.4 mg/dL (0.7-1.3); POTASSIUM 4.4 mmol/L (3.5-5.1)
[2018-08-14 11:15] LABS: ABSOLUTE NEUTROPHILS 16.8 thou/uL (1.4-8.2); METAMYELOCYTES 3 %; MYELOCYTES 2 %
[2018-08-14 11:16] LABS: ANISOCYTOSIS 1+; OVALOCYTES FEW
[2018-08-14 16:00] VITALS: BP 123/41
[2018-08-14 21:03] VITALS: BP 132/57
[2018-08-15 04:40] VITALS: BP 130/49
[2018-08-15 08:15] VITALS: BP 137/47
[2018-08-15 13:07] VITALS: BP 120/48
[2018-08-15 17:58] VITALS: BP 117/47
[2018-08-15 19:53] VITALS: BP 122/49
[2018-08-16 09:04] VITALS: BP 122/44
[2018-08-16] MEDS ORDERED: PREDNISONE 20 M20 MG PO (11:39)
[2018-08-16] MEDS ORDERED: LEVAQUIN 500 M500 M4 PO (11:39)
== END 2018-08-16 14:54 | DRG 871 ==
LOC: ER 18:15 → EROBS 20:19 → 4E 20:19 → SICU 08-15 16:56
PROVIDERS: Family Medicine; Nurse Practitioner Family; Student in an Organized Health Care Education/Training Program
DX: A41.9 Sepsis, unspecified organism (principal); E43 Unspecified severe protein-calorie malnutrition; J96.01 Acute respiratory failure with hypoxia; J18.9 Pneumonia, unspecified organism; J44.1 Chronic obstructive pulmonary disease with (acute) exacerbation; N17.9 Acute kidney failure, unspecified; J44.0 Chronic obstructive pulmonary disease with (acute) lower respiratory infection; J11.1 Influenza due to unidentified influenza virus with other respiratory manifestations; J20.9 Acute bronchitis, unspecified; I25.10 Atherosclerotic heart disease of native coronary artery without angina pectoris; E11.9 Type 2 diabetes mellitus without complications; I10 Essential (primary) hypertension; E78.5 Hyperlipidemia, unspecified; G47.00 Insomnia, unspecified; F41.9 Anxiety disorder, unspecified; G89.29 Other chronic pain; M25.519 Pain in unspecified shoulder; M19.90 Unspecified osteoarthritis, unspecified site; Z87.891 Personal history of nicotine dependence; Z79.82 Long term (current) use of aspirin; Z79.899 Other long term (current) drug therapy; Z95.1 Presence of aortocoronary bypass graft
CPT/HCPCS: 10084; 15002

== ENCOUNTER 2018-10-27 15:33 | Inpatient (IN) | payer OTHER ==
[~2018-10-27] VITALS: Ht 165.1 cm; Wt 69.4 kg
[2018-10-27 15:33] VITALS: BP 190/62
[~2018-10-27 15:33] MED LIST changes: +ALBUTEROL2.5 MG/31 INH; +LEVAQUIN 500 M500 M4 PO; +PREDNISONE 20 M20 MG PO
[2018-10-27 16:13] LABS: HEMATOCRIT 34.8 % (42.0-52.0); HEMOGLOBIN 11.6 gm/dL (14.0-18.0); MCH 29.3 pg (26.0-34.0); MCHC 33.4 g/dL (28.0-37.0); MCV 87.7 fL (80.0-100.0); PLATELET COUNT 274 thou/uL (150-400); RBC 3.96 mil/uL (4.50-6.00); RDW 16.6 % (10.5-14.5); WBC 11.8 thou/uL (4.0-11.0)
[2018-10-27 16:34] LABS: ANION GAP 8 mmol/L (7-16); BUN 22 mg/dL (7-18); CALCIUM 8.7 mg/dL (8.5-10.1); CHLORIDE 103 mmol/L (98-107); CO2 28 mmol/L (21-32); CREATININE 1.2 mg/dL (0.7-1.3); GLUCOSE 92 mg/dL (74-106); POTASSIUM 3.9 mmol/L (3.5-5.1); SODIUM 139 mmol/L (136-145)
[2018-10-27 16:41] LABS: ALBUMIN 2.9 g/dL (3.4-5.0); DIRECT BILIRUBIN 0.1 mg/dL (<0.1-0.3); SGOT 27 U/L (15-37); SGPT 31 U/L (30-65); TOTAL BILIRUBIN 0.4 mg/dL (<0.1-1.0); TOTAL PROTEIN 6.4 g/dL (6.4-8.2); TROPONIN-I <0.06 ng/mL (<0.06)
[2018-10-27 16:50] LABS: ANISOCYTOSIS 1+
[2018-10-27 16:51] LABS: ABSOLUTE NEUTROPHILS 9.1 thou/uL (1.4-8.2); METAMYELOCYTES 1 %
[2018-10-27 20:37] VITALS: BP 136/64
[2018-10-27 20:49] VITALS: BP 115/73
[2018-10-27 21:39] VITALS: BP 154/49
--- NOTE | 2018-10-28 00:36 | NUR ---
ADMISSION NOTE: ADMITTED WITH ONSET SIEZURE. HE IS ALERT AND ORIENTED AT TIME OF ADMISSION. HE STATED THAT HIS FAMILY REPORTED THAT HE DIDNOT FALL AT TIME OF SIEZURE AND HAS NO CUT SCRAPS OR BRUISES NOTED. DENIES PAIN. HE HAS BEEN INSTRUCTED TO CALL FOR ASSIST OUT OF BED. SIDERAILS PADDED AND SUCTION EQUIPEMENT IN THE ROOM AND BED ALARM SET. ORIENTED TO ROOM AND SURROUNDINGS. I OFFERED TO SEND HIS WALLET TO SECURITY, HE DENIES THAT IT NEEDS TO BE LOCKED UP. FAMILY WENT HOME FOR THE NIGHT.
[2018-10-28 04:52] VITALS: BP 161/50
--- NOTE | 2018-10-28 05:14 | NUR ---
Assumed care of pt at 2300. Pt alert and oriented. Seizure precautions in place. Neurology has been consulted. EEG, MRA [facility] [place], and MRI head ordered. Call light within reach. Will continue to monitor.
[2018-10-28 06:20] LABS: HEMATOCRIT 31.2 % (42.0-52.0); HEMOGLOBIN 10.5 gm/dL (14.0-18.0); MCH 29.4 pg (26.0-34.0); MCHC 33.6 g/dL (28.0-37.0); MCV 87.6 fL (80.0-100.0); RBC 3.55 mil/uL (4.50-6.00); RDW 16.5 % (10.5-14.5); WBC 8.7 thou/uL (4.0-11.0)
[2018-10-28 06:33] LABS: CALCIUM 8.5 mg/dL (8.5-10.1); CREATININE 1.1 mg/dL (0.7-1.3); POTASSIUM 3.6 mmol/L (3.5-5.1)
[2018-10-28 08:06] VITALS: BP 173/73
--- NOTE | 2018-10-28 10:58 | EKG ---
[address] [address] ELECTROCARDIOGRAM REPORT Name: ANGELES PAZ Room #: 353-P ADM IN M.R.#: [id number] ������������������ Admission: 10/27/18 ������������������ Attend Phys: Fish Breaux MD Discharge: ������������������ Date of : 40 Report #: [id number] ����������������������������������������������������������������� [id number] THIS REPORT FOR: //name// [facility] ED Test Date: 2018-10-27 Test Time: 15:40:02 Pat Name: ANGELES PAZ Department: Room: [facility] Gender: M Pressure Tester Operator: MICHELLE : 1940 Requested By: Elijah Le Order Number: [id number] MD: Mert Barrientos Measurements Intervals [place] Rate: 79 P: 61 [place]: 155 QRS: 38 QRSD: 72 T: 61 QT: 397 QTc: 456 Interpretive Statements Sinus rhythm Normal tracing Compared to ECG 08/07/2018 19:13:59 No significant change was found Electronically Signed On 10-28-2018 10:58:31 PATROL INSPECTOR by Mert Barrientos [email or web address] ��������������������������������������������� <ELECTRONICALLY SIGNED> ���������������������������������������� By: Mert Barrientos MD, [facility] ��������������������������������������������� 10/28/18 1058 1540 1540 Mert Barrientos MD, [facility] /EPI
[2018-10-28] MEDS ORDERED: ZANTAC 150MG T150 MG PO (11:54)
[2018-10-28 15:56] VITALS: BP 159/59
[2018-10-28 20:00] VITALS: BP 155/67
[2018-10-29 05:00] VITALS: BP 150/61
--- NOTE | 2018-10-29 06:18 | NUR ---
Pt. stated he slept well during the night just hungry when he woke up. No seizure activity. Seizure precautions maintained. Bed alarm on. Requested SCD's off this am. Will continue to monitor.
[2018-10-29 06:25] LABS: URINE BILIRUBIN NEGATIVE (Negative); URINE BLOOD NEGATIVE (Negative); URINE CLARITY CLEAR; URINE COLOR YELLOW; URINE GLUCOSE-RANDOM* NEGATIVE (Negative); URINE KETONES NEGATIVE (Negative); URINE LEUKOCYTES-REFLEX NEGATIVE (Negative); URINE NITRITE-REFLEX NEGATIVE (Negative); URINE PROTEIN (DIPSTICK) NEGATIVE (Negative); URINE SPECIFIC GRAVITY 1.015 (1.005-1.035); URINE UROBILINOGEN 0.2 E.U./dl (0.2-1.0)
[2018-10-29 06:32] LABS: AMP/METHAMP Negative (Negative); BARBITURATES Negative (Negative); BENZODIAZEPINES Negative (Negative); COCAINE Negative (Negative); METHADONE Negative (Negative); OPIATES Negative (Negative); PCP Negative (Negative)
[2018-10-29 07:38] VITALS: BP 160/72
--- NOTE | 2018-10-29 11:49 | NUR ---
Assumed care of patient at 0700. Vitals have been stable. Patient is alert and oriented x4. Pleasant, follows commands. Had MRI / MRA today; updated Dr. Lee of results. Awaiting neurology rounds. Working with PT / OT today. Steady gait, only up with SBA due to seizure precautions. Seizure precautions remain in place at bedside. No seizures witnessed this shift. Denies pain, nausea, SOB. Fall precautions in place, calls appropriately. Will continue to monitor.
--- NOTE | 2018-10-29 12:57 | NUR ---
INITIAL ASSESSMENT: Pt evaluated for d/c planning needs. Reviewed chart and spoke with nurse and pt. Pt is alert and oriented. Pt's SO last May. SO's son lives in area and pt has been living with him since her . Pt has cane for ambulation and nebulizer. Pt has not had home health in the past. Pt plans on returning home on d/c from hospital. Will remain available to assist as needed.
[2018-10-29 13:15] VITALS: BP 160/72
--- NOTE | 2018-10-29 13:50 | HC ---
[facility] [place] [address] [place] [address] CONSULTATION Name: ANGELES PAZ Room #: 353-P ADM IN M.R.#: [id number] Admission: 10/27/18 ������������������ Attend Phys: Ish Lee MD Discharge: ������������������ Date of : 40 Report #: [id number] THIS REPORT FOR: //name// CC: Rosa Breaux DATE OF SERVICE: 10/27/2018 HISTORY OF PRESENT ILLNESS: This is a 77-year-old male patient who was seen by me in Emergency Room at the request of Emergency Room physician. As I understood from him, this patient had a seizure. I could not contact any family member. Apparently, this patient had a syncope followed by a seizure. He said he was banging his chest. He does not remember anything about it. He apparently was confused, but when I saw him, he was not confused. He is on some medication for diabetes, but he does not know what medicine he takes. His blood sugar was 86 when he came in. He is a very poor historian. He does not tell me how often he checks his blood sugar. He said he was checking it quite often first, but now, he is not checking it very often because he does not have the machine. He said he does take prednisone, but he does not know why, but I suspect it is because of his COPD. He denies the use of drugs. He is not clear about his alcohol history. He said he used to drink alcohol, but he does not drink alcohol now. He does not think that any new medication has been started. He has a history of anxiety and depression. He takes clonazepam. He does not know how much he takes and when was the last time he took it. He is also on gabapentin, which has anticonvulsant effect, but he does not know when he was taking that. REVIEW OF SYSTEMS: A 14-point review of system was carried out. The patient has a history of COPD. He said he had a heart surgery in the past. He has a history of diabetes, hyperlipidemia, anxiety, had a rotator cuff surgery, has a history of hypertension. He does not complain of any new eye, ENT, GI, , musculoskeletal, constitutional, dermatological, hematological, allergic symptom associated with present symptomatology. Rest of the review of system was as described above. PAST MEDICAL HISTORY: Negative for seizure. FAMILY HISTORY: Negative for any early age seizure disorder. SOCIAL HISTORY: He says he used to drink alcohol, but does not drink now. When did he stop is not clear, but he does smoke. He denies the use of drugs. PHYSICAL EXAMINATION: Indicates he is alert, responsive, able to follow simple commands. He is oriented. His speech looks unremarkable. Cranial nerve examination 2-12 is unremarkable. Neuromuscular examination for strength, sensation, reflexes and tone is symmetrical. There is no meningeal sign in this [address] [address] CONSULTATION Name: ANGELES PAZ Room #: 353-P [facility] IN M.R.#: [id number] Admission: 10/27/18 ������������������ Attend Phys: Ish Lee MD Discharge: ������������������ Date of : 40 Report #: [id number] patient at all. He is moderately built individual with no edema, cyanosis or jaundice. His blood pressure is running about 115/73, pulse is 64, respiration is 15. His temperature is 99. Cardiac examination is unremarkable. He does have scattered rhonchi on both sides, but does not appear to be in marked respiratory difficulty. The CT scan appeared unremarkable, but he does have chronic changes throughout the brain, which is more than expected with his age. IMPRESSION: The history is not clear in this patient at all. I could not reach the family and I will try to reach the family. He did have an episode of syncope followed by seizure. Because of that, it is possible he had some cardiac arrhythmia or cardiac problem followed by seizure. His alcohol history is not very clear, but I do not think he drinks that much alcohol anymore. The biggest thing is his history of diabetes is not very clear. I do not know if he intermittently becomes hypoglycemic. He does not take his blood pressure, so I do not know if he drops his blood pressure. RECOMMENDATIONS: 1. I recommended admission. 2. I asked him to watch him on tele. 3. I talked to the nurses and told them to take seizure precautions and they should contact me in case seizure occurs. 4. I asked them to give Ativan if seizure occur. 5. I did not start him on anticonvulsant because he is already on gabapentin, which has anticonvulsant effect. I do not know whether he stopped taking his clonazepam and had some benzodiazepine withdrawal seizures and I think the best is to get the workup done and if we need to start on anticonvulsant, I might increase his gabapentin dose, which he is already on. I discussed all of it with the patient. The patient is competent to make decision. I discussed his options with him and he is agreeable with this option and he very well understands the pros and cons of the alternative. I had seen this patient last evening and a consult is just being dictated because of time constraints. We will be seeing the patient again later on today and I just talked to the nurses kristian just sometime ago. ��������������������������������������������� <ELECTRONICALLY SIGNED> ���������������������������������������� By: Tyrel Ramirez MD ��������������������������������������������� 10/29/18 1350 [id number] MD leticia Fragoso
--- NOTE | 2018-10-29 13:50 | EEG ---
[facility] [place] [address] [address] ELECTROENCEPHALOGRAM Name: ANGELES PAZ Room #: 353-P [facility] IN M.R.#: [id number] ������������������ Admission: 10/27/18 ������������������ Attend Phys: Ish Lee MD Discharge: ������������������ Date of : 40 Report #: [id number] ����������������������������������������������������������������� [id number] THIS REPORT FOR: //name// CC: Rosa Breaux This patient is being evaluated for an episode of seizure. EEG was done by placing the electrode by standard 10-20 system of electrode placement. Both referential and sequential montages were used for recording. Background activity in this patient's EEG is about 10 Hz and 30 microvolt. It is a symmetrical activity. Photic stimulation was unremarkable. The patient became drowsy that is associated with bilateral slowing. Throughout the record, no active epileptiform activity was noticed. IMPRESSION: This patient's EEG is within normal limit. Thank you very much for this referral. ���������������������������������������� <ELECTRONICALLY SIGNED> ���������������������������������������� By: Tyrel Ramirez MD ��������������������������������������������� 10/29/18 1350 [id number] Tyrel Ramirez MD /nt
--- NOTE | 2018-10-29 14:25 | NUR ---
Assumed care of patient at 0700. Alert and oriented x4 and vital signs stable. 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 Work with PT/OT today, patient steady and balanced, but placed on stand by assist due to seizure precatuions. Seizure and fall precautions still in place, and no seizure activity witnessed. Patient denies any pain. Discharge instructions reviewed with patient and should follow up with PCP in one week.
[2018-10-29 17:12] VITALS: BP 170/68
[2018-10-29 17:17] VITALS: BP 170/68
== END 2018-10-29 17:38 | disposition home or self-care (01) | DRG 100 ==
LOC: ER 15:33 → EROBS 19:32 → 3W 19:32
PROVIDERS: Emergency Medicine; Nurse Practitioner; ADMIT Hospitalist
DX: R56.9 Unspecified convulsions (principal); G93.41 Metabolic encephalopathy; J44.9 Chronic obstructive pulmonary disease, unspecified; I25.10 Atherosclerotic heart disease of native coronary artery without angina pectoris; E11.9 Type 2 diabetes mellitus without complications; I10 Essential (primary) hypertension; E78.5 Hyperlipidemia, unspecified; F41.9 Anxiety disorder, unspecified; G89.29 Other chronic pain; M25.519 Pain in unspecified shoulder; M19.90 Unspecified osteoarthritis, unspecified site; Z87.891 Personal history of nicotine dependence; Z95.1 Presence of aortocoronary bypass graft; Z79.82 Long term (current) use of aspirin; Z79.899 Other long term (current) drug therapy
CPT/HCPCS: 10879